=== PATIENT | male | born 2000 | race Caucasian/White ===

== ENCOUNTER 2022-10-25 11:54 | Day surgery (SDC) | payer OTHER ==
[2022-10-24 15:50] VITALS: BMI 19.0
[~2022-10-25 11:54] MED LIST: Bupivacaine 0.25% HCL 30 ML VIAL ONE; Lidocaine 1% (PF) 30 ML VIAL ONE
[2022-10-25] MEDS ORDERED: Fentanyl 250 MCG/5 ML VIAL ONE (12:55)
[2022-10-25] MEDS ORDERED: CEFAZOLIN 2 GM VIAL ONE (12:55)
[2022-10-25] MEDS ORDERED: Midazolam HCl 2 mg/2 ml Vial ONE (12:55)
[2022-10-25] MEDS ORDERED: PROPOFOL 20 ML ONE (12:55)
[2022-10-25] MEDS ORDERED: Esmolol 100 MG/10 ML VIAL ONE (13:37)
[2022-10-25] MEDS ORDERED: Dexamethasone 4 mg/ml Vial ONE (13:37)
[2022-10-25] MEDS ORDERED: Ondansetron PF 4 MG/2 ML Vial ONE (13:37)
[2022-10-25] MEDS ORDERED: Lidocaine 2% PF 5 ML VIAL ONE (13:37)
[2022-10-25] MEDS ORDERED: fentaNYL 50 mcg/mL 1 mL Vial ONE (14:08)
[2022-10-25] MEDS ORDERED: Meperidine HCl/PF 25 MG/ML VIAL ONE (14:50)
[2022-10-25] MEDS ORDERED: HYDROmorphone 0.5 MG/0.5 ML SYRINGE ONE (15:00)
[2022-10-25] MEDS ORDERED: oxyCODONE 5 MG TAB ONE (15:21)
== END 2022-10-25 16:05 | disposition home or self-care (01) ==
LOC: CSHSDC 11:54
PROVIDERS: ATTEND Surgery Surgery of the Hand
PROC: 0PSJ04Z Reposition Left Radius with Internal Fixation Device, Open Approach (ICD-10-PCS; principal; 2022-10-25)
DX: S52.532A Colles' fracture of left radius, initial encounter for closed fracture (principal); S52.612A Displaced fracture of left ulna styloid process, initial encounter for closed fracture; V00.121A Fall from non-in-line roller-skates, initial encounter
CPT/HCPCS: C1713; J1100; J1170; J2001; J2175; J2250; J2405; J2704; J3010; S0020